=== PATIENT | male | born 1970 | race Caucasian/White ===

== ENCOUNTER 2016-11-28 19:30 | Emergency (ER) | payer OTHER ==
[2016-11-28 21:40] VITALS: BP 138/72
== END 2016-11-28 21:40 | disposition home or self-care (01) ==
LOC: ED 19:30
DX: S13.4XXA Sprain of ligaments of cervical spine, initial encounter (principal); M54.9 Dorsalgia, unspecified; V89.2XXA Person injured in unspecified motor-vehicle accident, traffic, initial encounter; Y93.I9 Activity, other involving external motion; Y92.488 Other paved roadways as the place of occurrence of the external cause; Y99.8 Other external cause status